=== PATIENT | female | born 2000 | race African-American/Black ===

== ENCOUNTER 2023-11-23 19:14 | Emergency (ER) | payer OTHER, SELFPAY ==
[2023-11-23 19:16] VITALS: BP 143/95; PULSE 77; RESP 18; TEMP 36.9; O2SAT 98; BMI 19.8
--- NOTE | 2023-11-23 19:28 | HMH.EDGENADL ---
Discharge Plan Disposition Patient Disposition: Home, Self-Care Condition: Good Prescriptions Prescriptions: New sulfamethoxazole-trimethoprim [Bactrim DS] 800-160 mg tablet 1 tab PO BID 10 Days Qty: 20 0RF cephalexin 500 mg capsule 500 mg PO Q8H 10 Days Qty: 30 0RF Referrals Follow up/Referrals: Provider,Referral, [Primary Care Provider] - See instructions Activity Restrictions/Add. Instructions Additional Instructions/Restrictions: You were evaluated in the emergency department today. Please grape picker your prescriptions for antibiotics at the pharmacy and take the full course as prescribed. Take Tylenol and ibuprofen every 4-6 hours as needed for pain. Stop taking the other antibiotic that was previously prescribed to you. Follow-up closely with your primary care provider for reassessment. Return to the emergency department for new or worsening symptoms Clinical Impressions Clinical Impression: Cellulitis, Abscess of breast Stand Alone Forms Stand Alone Forms: Work/School Release Instructions Patient Instructions: Cellulitis, DI for Skin Abscess Print Language Print Language: Tuvaluan Discharge ED Provider: Shannan Sandhu General Adult HPI General Chief complaint: Skin/Abscess/Foreign Body Stated complaint: LT side breast pain Time Seen by Provider: 11/23/23 19:16 Mode of Arrival: Ambulatory Source of Information: Patient Limitations: No Limitations Description of Symptoms (Recalled from ER Triage Doc. by RN): Patient reports she recently had a surgery for an ectopic recently and shortly after began having swelling and pain to the left breast. She was seen on Saturday at [facility] in [place] and they started her on antibiotics. Patient reports the swelling and pain has significantly increased with a constant pain of 9/10 at this time. Patient denies known fevers at home. History of Present Illness HPI narrative: This patient is a 23-year-old female with a history of recent surgery for ectopic but no other significant past medical history presenting to the emergency department for evaluation with concern for left breast pain and tenderness. Patient reports that she was evaluated at [facility] Saturday and started on dicloxacillin for an infection of her left breast. She has been taking it, but the pain and swelling keeps getting worse. She notes that she was told if it got worse to go to the ER. No fevers, chills, or other systemic symptoms. She has otherwise been well. She is not currently breast-feeding. Related Data Previous Rx's ?Medication ?Instructions ?Recorded cephalexin 500 mg capsule 500 mg PO Q8H 10 days #30 caps 11/23/23 sulfamethoxazole 800 1 tab PO BID 10 days #20 tabs 11/23/23 mg-trimethoprim 160 mg tablet (Bactrim DS) Allergies Allergy/AdvReac Type Severity Reaction Status Date / Time No Known Allergies Allergy Verified 11/23/23 19:28 [facility] Disclaimer: The information contained in this section may have been updated after the patient was seen, as this information can be updated by other users. Medical History (Updated 11/23/23 @ 20:47 by Shannan Sandhu DO) Hx of ectopic Social History Smoking Status: Never smoker alcohol intake: never current occupational status: employed Travel in the last 8 weeks: None ROS Obtained: Yes All systems reviewed & no additional complaints except as documented Physical Exam General General appearance: alert and in no apparent distress Head Head exam: atraumatic and normocephalic Eye Eye exam: Present normal appearance, PERRL and EOMI ENT ENT exam: Present normal exam, normal oropharynx, mucous membranes moist and normal external ear exam Neck Neck exam: Present normal inspection, full ROM and trachea midline; Absent tenderness Chest Chest inspection: Present symmetric chest wall rise and tenderness Expanded Chest Exam Female Torso: 1. Palpable area of induration and fluctuance with surrounding erythema and warmth. Tenderness to palpation associated Respiratory Respiratory exam: Present normal lung sounds bilaterally; Absent respiratory distress, wheezes, stridor or accessory muscle use Cardiovascular Cardiovascular exam: Present regular rate and normal rhythm Abdominal Exam Abdominal exam: Present soft; Absent distention, tenderness or guarding Extremities Exam Extremities exam: Present normal inspection, full ROM and normal capillary refill; Absent tenderness or edema Back Exam Back exam: Present normal inspection and full ROM; Absent tenderness Neurological Exam Neurological exam: Present alert, oriented X3, CN II-XII intact and normal gait; Absent motor sensory deficit Psychiatric Psychiatric exam: Present normal affect and normal mood Skin Skin exam: Present warm and dry Medical Decision Making Medical Records Medical records reviewed: Yes I reviewed the patient's medical records. Alfred Inquiry Pt receiving controlled substance: No Vital Signs: 11/23/23 19:16 11/23/23 20:58 Temperature 98.5 F 98.3 F Temperature Source Oral Pulse Rate 72 Pulse Rate [Left Radial] 77 Respiratory Rate 18 20 Blood Pressure 143/95 H Blood Pressure [Right Arm] 143/95 H Blood Pressure Mean [Right Arm] 111 Blood Pressure Source [Right Arm] Automatic Cuff Blood Pressure Position [Right Arm] Sitting 02 Sat by Pulse Oximetry 98 Oxygen Delivery Method Room Air Room Air Lab Data Lab results reviewed: Yes I reviewed the patient's lab results. Orders (Tests/Meds): ED MEDICATIONS Discontinued Medications Generic Name Dose Route Start Last Admin Trade Name Michael PRN Reason Stop Dose Admin Acetaminophen 1,000 mg 11/23/23 19:27 11/23/23 19:32 Acetaminophen 500mg Tab PO 11/23/23 19:28 1,000 mg ONCE ONE Administration Cephalexin HCl 500 mg 11/23/23 20:46 11/23/23 20:56 Cephalexin 500mg Capsule PO 11/23/23 20:47 500 mg ONCE ONE Administration Lidocaine/Epinephrine 20 ml 11/23/23 19:27 11/23/23 19:33 Lidocaine 1% W/Epi 1:100,000 20ml Vial IJ 11/23/23 19:28 20 ml ONCE ONE Administration Lidocaine/Prilocaine 5 gm 11/23/23 19:27 11/23/23 19:33 Lidocaine/Prilocaine 5gm Tube TP 11/23/23 19:28 5 gm ONCE ONE Administration Ondansetron HCl 4 mg 11/23/23 19:27 11/23/23 19:32 Ondansetron 4mg Odt SL 11/23/23 19:28 4 mg ONCE ONE Administration Trimethoprim/Sulfamethoxazole 1 each 11/23/23 20:46 11/23/23 20:56 Sulfa/Trimethoprim 1 Tablet PO 11/23/23 20:47 1 each ONCE ONE Administration ORDERS Category Date Time Status POCUS Point of Care (ER Only) Stat Exams 11/23/23 19:21 Completed Wound Culture and Gram Stain Stat Micro 11/23/23 20:45 Received Medical Decision Narrative: In summary, this patient is a 23-year-old female presenting to the Emergency Department for evaluation of left breast pain and swelling. Differential diagnoses considered include but are not limited to abscess, cellulitis, mastitis. Ruling out the most morbid conditions drove assessment. On exam, the patient is nontoxic-appearing with normal vital signs on cardiac telemetry. She does have findings concerning for abscess, so soft tissue ultrasound was performed. Since she has not had systemic symptoms, I do not feel that labs or other imaging are indicated at this time. Ultrasound is concerning for abscess. Topical Emla was applied to numb the area, and then lidocaine with epinephrine was ordered to inject local anesthetic. After risk versus benefit was explained, patient gave informed consent for incision and drainage of left breast abscess. Patient tolerated incision and drainage very well. Wound culture was sent. She was given oral Bactrim and Keflex. Please procedure note for further documentation. At this time, I feel she is appropriate for discharge with prescriptions for Bactrim and Keflex as well as instructions for supportive management and close outpatient follow-up. Strict return precautions were given. Procedures Risk/Benefits of Procedure(s) Were Explained: Yes Abscess I/D Site: chest Side (if applicable): left Sedation/analgesia: none Local Anesthetic: lidocaine 1% and with epi Amount of anesthesia used (mL): 3 Technique: incised with #11 blade Amount of fluid expressed (mL): 20 Irrigation: Yes Packing used?: none Limited Ultrasound Findings:: Limited soft tissue ultrasound Indication: Soft tissue swelling, redness, and pain Identified structures: Location: Left breast Findings: Abscess, 3cm Impression: Abscess of soft tissue Images were saved to permanent archive The study was technically adequate Soft Tissue CPT Codes: CPT Breast: 33302-23-QZ (limited) This study was performed by me, and I personally interpreted all images/videos. Based on my clinical judgement, these images were adequate and did not necessitate further imaging. Critical Care Critical Care Time Critical Care Time: No
[2023-11-23] MEDS: ACETAMINOPHEN 500MG TAB 1000 MG PO (19:32)
[2023-11-23] MEDS: ONDANSETRON 4MG ODT 4 MG SL (19:32)
[2023-11-23] MEDS: LIDOCAINE 1% W/EPI 1:100,000 20ML VIAL 20 ML IJ (19:33)
[2023-11-23] MEDS: LIDOCAINE/PRILOCAINE 5GM TUBE 5 GM TP (19:33)
--- NOTE | 2023-11-23 20:01 | PC.NURSE ---
Placed I&D supplies at bedside.
--- NOTE | 2023-11-23 20:52 | PC.NURSE ---
Assisted Dr. Sandhu with incision and drainage. Applied non-adherant absorbent dressing.
[2023-11-23] MEDS: SULFA/TRIMETHOPRIM 1 TABLET 1 EACH PO (20:56)
[2023-11-23] MEDS: cephALEXin 500MG CAPSULE 500 MG PO (20:56)
[2023-11-23 20:58] VITALS: BP 143/95; PULSE 72; RESP 20; TEMP 36.8; O2SAT 100
== END 2023-11-23 21:04 | disposition home or self-care (01) ==
PROVIDERS: Emergency Provider Emergency Medicine
DX: N61.1 Abscess of the breast and nipple (principal)
CPT/HCPCS: 10060; 87070; 87205; 99284; Q0162

== ENCOUNTER 2023-11-25 19:19 | Emergency (ER) | payer OTHER, SELFPAY ==
[2023-11-25 19:54] VITALS: BP 117/72; PULSE 63; RESP 16; TEMP 37; O2SAT 98; BMI 18.0
[2023-11-25 19:58] VITALS: BP 117/72; PULSE 63; RESP 18; TEMP 37; O2SAT 98
== END 2023-11-25 20:01 | disposition home or self-care (01) ==
LOC: ER 19:46
PROVIDERS: Emergency Provider Emergency Medicine
DX: Z48.02 Encounter for removal of sutures (principal)
CPT/HCPCS: 99281

== ENCOUNTER 2024-06-21 09:11 | Emergency (ER) | payer OTHER, SELFPAY ==
[2024-06-21 09:26] VITALS: BP 116/68; PULSE 62; RESP 16; TEMP 36.8; O2SAT 100; BMI 20.5
--- NOTE | 2024-06-21 09:34 | PC.NURSE ---
pt placed in gown, blanket provided
--- NOTE | 2024-06-21 09:58 | PC.NURSE ---
dr ca at bedside
--- NOTE | 2024-06-21 10:01 | PC.NURSE ---
consent signed for I&D
--- NOTE | 2024-06-21 10:04 | ED_ITS ---
Discharge Plan Disposition Patient Disposition: Home, Self-Care Condition: Good Prescriptions Prescriptions: New sulfamethoxazole-trimethoprim [Bactrim DS] 800-160 mg tablet 1 tab PO BID 10 Days Qty: 20 0RF cephalexin 500 mg capsule 500 mg PO Q8H 10 Days Qty: 30 0RF No Action sulfamethoxazole-trimethoprim [Bactrim DS] 800-160 mg tablet 1 tab PO BID 10 Days Qty: 20 0RF cephalexin 500 mg capsule 500 mg PO Q8H 10 Days Qty: 30 0RF Referrals Follow up/Referrals: Terrence Gonzalez MD [Staff Physician] - See instructions Provider,MD Bc [Primary Care Provider] - See instructions Aidan Alberts MD [Staff Physician] - See instructions Activity Restrictions/Add. Instructions Additional Instructions/Restrictions: You were evaluated in the emergency department today. Please orange picker your prescription for antibiotic and take the full course as prescribed. I am providing you with information for general surgery for follow-up since you have had recurrent breast abscesses. Take Tylenol and ibuprofen as needed for pain. Keep your wound clean and dry. Expect that it may continue to drain, which is the goal. Return to the emergency department for new or worsening symptoms. Clinical Impressions Clinical Impression: Abscess of breast Instructions Patient Instructions: DI for Incision and Drainage of a Skin Abscess, DI for Skin Abscess Print Language Print Language: Dominican Discharge ED Provider: Shannan Sandhu General Adult HPI General Chief complaint: Skin/Abscess/Foreign Body Stated complaint: left breast pain w/bump Time Seen by Provider: 06/21/24 09:48 Mode of Arrival: Ambulatory Source of Information: Patient Description of Symptoms (Recalled from ER Triage Doc. by RN): Patient presents ambulatory to triage with smooth steady gait. Patient reports she has a spot on her left breast that needs lanced. States she has has had similar abscesses before requiring I&D. Denies any pre-medication. States she was placed on antibiotics awhile ago but that she has completed them. Denies fevers. Endorses nausea. Denies vomiting. History of Present Illness HPI narrative: This patient is a 24-year-old female with history of prior breast abscess presenting to the emergency department for evaluation with concern for a lump with swelling to her left breast that that she feels needs drainage. She notes that it has been there for a few days. I saw her back in November for similar issue with a breast abscess that was very superficial, so I elected to drain it at bedside. She notes she did well after this and oral antibiotics. No fevers, chills, or systemic symptoms noted. She is otherwise well. Related Data Previous Rx's ?Medication ?Instructions ?Recorded cephalexin 500 mg capsule 500 mg PO Q8H 10 days #30 caps 11/23/23 sulfamethoxazole 800 1 tab PO BID 10 days #20 tabs 11/23/23 mg-trimethoprim 160 mg tablet (Bactrim DS) cephalexin 500 mg capsule 500 mg PO Q8H 10 days #30 caps 06/21/24 sulfamethoxazole 800 1 tab PO BID 10 days #20 tabs 06/21/24 mg-trimethoprim 160 mg tablet (Bactrim DS) Allergies Allergy/AdvReac Type Severity Reaction Status Date / Time No Known Allergies Allergy Verified 11/23/23 19:28 [facility] Disclaimer: The information contained in this section may have been updated after the patient was seen, as this information can be updated by other users. Medical History Hx of ectopic Social History Smoking Status: Unknown if ever smoked alcohol intake: never current occupational status: employed Travel in the last 8 weeks: None Have you lived/traveled outside [place] in past 30 days?: No Contact w/someone who lives/traveled outside US past 30 days?: No Exposure to someone with infectious disease in past 14 days?: No Do you have a fever (greater than 100.4 F or 38 C)?: No Have you tested positive for COVID-19: No Exposed to someone with COVID-19 in past 14 days?: No Do you have a sore throat?: No Do you have a cough?: No Do you have any weakness?: No Do you have any diarrhea?: No Are you experiencing any unusual bleeding?: No Do you have any muscle aches/pain?: No Do you have any abdominal pain?: No Are you experiencing loss of taste or smell?: No Other Medical History Have you received the Flu Vaccine for this season: No Have you received the Pneumonia Vaccine: No ROS Obtained: Yes All systems reviewed & no additional complaints except as documented Physical Exam General General appearance: alert and in no apparent distress Head Head exam: atraumatic and normocephalic Eye Eye exam: Present normal appearance, PERRL and EOMI ENT ENT exam: Present normal exam, normal oropharynx, mucous membranes moist and normal external ear exam Neck Neck exam: Present normal inspection, full ROM and trachea midline; Absent tenderness Chest Chest inspection: Present symmetric chest wall rise; Absent tenderness Expanded Chest Exam Female Torso: 2 1. Very superficial abscess with surrounding induration and tenderness to palpation just medial to the left nipple Respiratory Respiratory exam: Present normal lung sounds bilaterally; Absent respiratory distress, wheezes, stridor or accessory muscle use Cardiovascular Cardiovascular exam: Present regular rate and normal rhythm Abdominal Exam Abdominal exam: Present soft; Absent distention, tenderness or guarding Extremities Exam Extremities exam: Present normal inspection, full ROM and normal capillary refill; Absent tenderness or edema Back Exam Back exam: Present normal inspection and full ROM; Absent tenderness Neurological Exam Neurological exam: Present alert, oriented X3, CN II-XII intact and normal gait; Absent motor sensory deficit Psychiatric Psychiatric exam: Present normal affect and normal mood Skin Skin exam: Present warm and dry Medical Decision Making Medical Records Medical records reviewed: Yes I reviewed the patient's medical records. Screening: Per USPSTF and CDC recommendations, given the prevalence of disease in our region, it is our hospital?s policy to screen for HIV and viral Hepatitis for all patients aged 18 and over and those with ongoing risk factors. Alfred Inquiry Pt receiving controlled substance: No Vital Signs: 06/21/24 09:26 06/21/24 10:30 Temperature 98.3 F 98.2 F Temperature Source Oral Oral Pulse Rate 68 Pulse Rate [Radial] 62 Respiratory Rate 16 16 Blood Pressure 114/70 Blood Pressure [R Arm] 116/68 Blood Pressure Mean [R Arm] 84 Blood Pressure Source [R Arm] Automatic Cuff Blood Pressure Position Sitting 02 Sat by Pulse Oximetry 100 Oxygen Delivery Method Room Air Room Air Lab Data Lab results reviewed: Yes I reviewed the patient's lab results. Orders (Tests/Meds): ED MEDICATIONS Discontinued Medications Generic Name Dose Route Start Last Admin Trade Name Freq PRN Reason Stop Dose Admin Acetaminophen 1,000 mg 06/21/24 09:58 06/21/24 10:05 Acetaminophen 500mg Tab PO 06/21/24 09:59 1,000 mg ONCE ONE Administration Cephalexin HCl 500 mg 06/21/24 10:26 06/21/24 10:30 Cephalexin 500mg Capsule PO 06/21/24 10:27 500 mg ONCE ONE Administration Ibuprofen 800 mg 06/21/24 09:58 06/21/24 10:05 Ibuprofen 400 Mg Tablet PO 06/21/24 09:59 800 mg ONCE ONE Administration Lidocaine/Epinephrine 10 ml 06/21/24 09:58 06/21/24 10:05 Lidocaine 1% W/Epi 1:100,000 20ml Vial IJ 06/21/24 09:59 10 ml ONCE ONE Administration Trimethoprim/Sulfamethoxazole 1 each 06/21/24 10:26 06/21/24 10:30 Sulfa/Trimethoprim 1 Tablet PO 06/21/24 10:27 1 each ONCE ONE Administration ORDERS Category Date Time Status Wound Culture and Gram Stain Stat Micro 06/21/24 10:25 Received Medical Decision Narrative: In summary, this patient is a 24-year-old female presenting to the Emergency Department for evaluation of breast abscess that she feels needs drained. Differential diagnoses considered include but are not limited to abscess, cellulitis, moving gland dysfunction. Ruling out the most morbid conditions drove assessment. I reviewed patient's past medical records and noted evaluation by myself 11/23/2023 for breast abscess which was lanced successfully at bedside. I discharged her with Bactrim and Keflex.. On exam, the patient is well-appearing with no systemic signs or symptoms. Vitals reassuring and she is afebrile. She has a very superficial breast abscess with surrounding induration.after informed consent was obtained after explanation of risk versus benefit, patient elects for incision and drainage at bedside. She was given oral Tylenol and ibuprofen for pain. Lidocaine with epinephrine was ordered for local anesthesia. Patient tolerated incision and drainage well. Wound culture was sent and is pending. At this time, feel the patient is appropriate for discharge home with prescriptions for Bactrim and Keflex. She was given information for possible surgery referral and outpatient follow-up given recurrent breast abscesses. She was also given strict return precautions. She was discharged after all questions were answered. Procedures Risk/Benefits of Procedure(s) Were Explained: Yes Abscess I/D Site: chest Side (if applicable): left Local Anesthetic: lidocaine 1% and with epi Amount of anesthesia used (mL): 1 Technique: incised with #11 blade Amount of fluid expressed (mL): 20 Irrigation: Yes Packing used?: none Critical Care Critical Care Time Critical Care Time: No
[2024-06-21] MEDS: IBUPROFEN 400 MG TABLET 800 MG PO (10:05)
[2024-06-21] MEDS: LIDOCAINE 1% W/EPI 1:100,000 20ML VIAL 10 ML IJ (10:05)
[2024-06-21] MEDS: ACETAMINOPHEN 500MG TAB 1000 MG PO (10:05)
[2024-06-21 10:30] VITALS: BP 114/70; PULSE 68; RESP 16; TEMP 36.8; O2SAT 99
[2024-06-21] MEDS: SULFA/TRIMETHOPRIM 1 TABLET 1 EACH PO (10:30)
[2024-06-21] MEDS: cephALEXin 500MG CAPSULE 500 MG PO (10:30)
== END 2024-06-21 10:35 | disposition home or self-care (01) ==
PROVIDERS: Emergency Provider Emergency Medicine
DX: N61.1 Abscess of the breast and nipple (principal); N63.20 Unspecified lump in the left breast, unspecified quadrant; R11.0 Nausea
CPT/HCPCS: 10060; 87070; 87205; 99283